=== PATIENT | female | born 1995 | race Caucasian/White ===

== ENCOUNTER 2019-12-27 00:40 | Emergency (ER) | payer OTHER ==
[~2019-12-27] VITALS: Ht 154.9 cm; Wt 106.6 kg
[2019-12-27 00:58] VITALS: Ht 154.9 cm; Wt 106.6 kg
[2019-12-27 03:13] VITALS: BP 117/68
== END 2019-12-27 03:13 | disposition home or self-care (01) ==
LOC: ED 00:40
DX: O26.892 Other specified pregnancy related conditions, second trimester (principal); R12 Heartburn; M54.5 Low back pain; Z3A.22 22 weeks gestation of pregnancy
CPT/HCPCS: Q0092